=== PATIENT | male | born 1945 | race Caucasian/White ===

== ENCOUNTER 2016-09-16 12:12 | Emergency (ER) | payer OTHER, MEDICARE ==
[2016-09-16 12:41] VITALS: BP 132/77
--- NOTE | 2016-09-16 14:15 | UC ---
Christy Madrid Alfonso, scribed for Marco Antonio Casas MD on 09/16/16 at 1233 . HPI Febrile Illness - HPI Summary HPI Summary: This patient is a 71 year old male presenting to [facility] c/o febrile illness since yesterday night. Sx aggravated and alleviated by nothing. He reports productive cough, body aches, chills, nasal congestion, and sore throat. He denies vomit, wheezing, and SOB. Tobacco use disorder. Denies any contact with sick persons. Denies PMHx of diabetes mellitus and COPD. PMHx HTN. - History of Current Complaint Chief Complaint: UCRespiratory Time Seen by Provider: 09/16/16 12:21 Hx Obtained From: Patient Onset/Duration: Started Days Ago - Yesterday night, Still Present Timing: Constant Initial Severity: Moderate Current Severity: Moderate Aggravating Factors: Nothing Alleviating Factors: Nothing Associated Signs and Symptoms: Other: - Positive productive cough, fever, body aches, chills, nasal congestion, and sore throat. Negative vomit, wheezing, and SOB - Allergy/Home Medications Allergies/Adverse Reactions: Allergies Allergy/AdvReac Type Severity Reaction Status Date / Time No Known Allergies Allergy Verified 01/05/13 14:00 PMH/Surg Hx/FS Hx/Imm Hx Endocrine/Hematology History: Denies: Hx Diabetes, Hx Thyroid Disease Cardiovascular History: Reports: Hx Hypertension Respiratory History: Denies: Hx Asthma, Hx Chronic Obstructive Pulmonary Disease (COPD) GI History: Denies: Hx Ulcer - Surgical History Surgery Procedure, Year, and Place: RIGHT 2008 Infectious Disease History: No Infectious Disease History: Denies: Hx Clostridium Difficile, Hx Hepatitis, Hx Human Immunodeficiency Virus (HIV), Hx of Known/Suspected MRSA, Hx Shingles, Hx Tuberculosis, Hx Known/ Suspected VRE, Hx Known/Suspected VRSA, History Other Infectious Disease, Traveled Outside the [place] in Last 30 Days - Family History Known Family History: Positive: Other - Cancer in both parents - Social History Alcohol Use: Daily Substance Use Type: Reports: None Smoking Status (MU): Light Every Day Tobacco Smoker Review of Systems Constitutional: Fever, Chills ENT: Other - Positive nasal congestion and sore throat; negative wheezing and SOB Respiratory: Cough - Productive Gastrointestinal: Other - Negative vomiting Musculoskeletal: Other: - Positive body aches All Other Systems Reviewed And Are Negative: Yes Physical Exam Triage Information Reviewed: Yes Vital Signs: Initial Vital Signs Temp 98.1 F 09/16/16 12:13 Pulse 92 09/16/16 12:13 Resp 20 09/16/16 12:13 BP 132/77 09/16/16 12:13 Pulse Ox 98 09/16/16 12:13 Vital Signs Reviewed: Yes - Additional Comments The patient is well-nourished in no acute distress and in no acute pain. The skin is warm and dry and skin color reflects adequate perfusion. HEENT: The head is normocephalic and atraumatic. The pupils are equal and reactive. The conjunctivae are clear and without drainage. Nares are patent and without drainage. No rhinorrhea. Mouth reveals moist mucous membranes and the throat is without erythema and exudate. The external ears are intact. The ear canals are patent and without drainage. The tympanic membranes are intact. Neck is supple with full range of motion and non-tender. There are no carotid bruits. There is no neck vein distension. Respiratory: Chest is non-tender. Lungs are wheezing with rhonchi. Breath sounds are diminished in the right lung. Cardiovascular: Heart is regular rate and rhythm. There is no murmur or rub auscultated. There is no peripheral edema and pulses are symmetrical and equal. Abdomen: The abdomen is soft and non-tender. There are normal bowel sounds heard in all four quadrants and there is no organomegaly palpated. Musculoskeletal: There is 2 second capillary refill. Neurological: Patient is alert and oriented to person, place and time. Psychiatric: The patient has an appropriate affect and does not exhibit any anxiety or depression. Course/Dx - Course Assessment/Plan: A 71-year-old M presents to [facility] with a CC of febrile illness since yesterday night. He reports productive cough, body aches, chills, nasal congestion, and sore throat. He denies vomit, wheezing, and SOB. Patient will be discharged with Z-Jose M, Ventolin inhaler, prednisone, and follow up with PCP in 1 week. Pt is agreeable with this plan. - Febrile Illness Differential Diagnoses: Pneumonia, Other: - bronchitis, sinusitis - Diagnoses Clinic Provider Diagnoses: acute bronchitis Discharge - Discharge Plan Condition: Stable Disposition: HOME Prescriptions: Albuterol HFA INHALER* [Ventolin HFA Inhaler*] 2 puff INH Q6H PRN #1 mdi PRN Reason: cough Azithromycin TAB* [Zithromax TAB (Z-JOSE M) 250 mg #6 tabs] 2 tab PO .TODAY, THEN 1 DAILY #1 jose m predniSONE TAB* [Deltasone TAB*] 60 mg PO DAILY #15 tab Patient Education Materials: Acute Bronchitis (ED) Referrals: Nusrat Willis [Nurse Practitioner] - 1 Week The documentation as recorded by the Christy mcbride Alfonso accurately reflects the service I personally performed and the decisions made by , Marco Antonio Casas MD.
== END 2016-09-16 13:00 | disposition home or self-care (01) ==
LOC: UCEAST 12:12
DX: J20.9 Acute bronchitis, unspecified (principal); F17.210 Nicotine dependence, cigarettes, uncomplicated
CPT/HCPCS: 99212; G0463

== ENCOUNTER 2017-06-10 07:51 | Emergency (ER) | payer OTHER ==
[2017-06-10] MEDS ORDERED: NS 0.9% 1000 ML* 1,000 ML IV ONE (08:57)
[2017-06-10] MEDS ORDERED: Ketorolac INJ* 30 MG/ML 1 ML VIAL IV PUSH ONE (08:57)
[2017-06-10] MEDS ORDERED: Amoxicillin PO (*) 500 MG CAP PO ONE (08:58)
[2017-06-10 09:49] LABS: Hematocrit 43 % (42-52); Hemoglobin 14.9 g/dl (14.0-18.0); Mean Corpuscular HGB Conc 35 g/dl (31-36); Mean Corpuscular Hemoglobin 34 pg (27-31); Mean Corpuscular Volume 97 fL (80-94); Mean Platelet Volume 8.3 um3 (7.4-10.4); Platelet Count 128 10^3/ul (150-450); Red Blood Count 4.38 10^6/ul (4.0-5.4); Red Cell Distribution Width 12 % (10.5-15)
[2017-06-10 10:10] LABS: EGFR Non-African American 106.5 (>60)
[2017-06-10 12:49] VITALS: BP 130/72
--- NOTE | 2017-06-21 12:51 | ED ---
Jorgito Madrid Jason, scribed for Tulio Galvan MD on 06/10/17 at 1116 . Throat Pain/Nasal Congestion - HPI Summary HPI Summary: This patient is a 71 year old M presenting to [facility] with a chief complaint of dental pain since 2 days ago. The patient states 2 days ago he began experiencing dental pain with progressive swelling of his upper lip and left side of the face. 1 day ago the swelling got worse so he visited his dentist and was prescribed amoxicillin, which he has been on for 2 days as of today. He includes he took 600 mg of ibuprofen at home and has a tooth extraction planned in 5 days. The patient rates the pain 7/10 in severity. Symptoms aggravated by nothing. Symptoms alleviated by nothing. Patient denies fever. - History of Current Complaint Chief Complaint: EDRashSkinAbscess Time Seen by Provider: 06/10/17 08:39 Hx Obtained From: Patient Onset/Duration: Gradual Onset, Lasting Days - 2 days, Still Present Associated Signs And Symptoms: Positive: Negative - fever - Allergies/Home Medications Allergies/Adverse Reactions: Allergies Allergy/AdvReac Type Severity Reaction Status Date / Time No Known Allergies Allergy Verified 06/10/17 08:28 Home Medications: Home Medications Amoxicillin PO (*) [Amoxicillin 500 MG CAP*] 1 cap PO Q8H 06/10/17 [History Confirmed 06/10/17] Aspirin EC TAB* [Ecotrin EC Low Dose 81 MG*] 81 mg PO DAILY 06/10/17 [History Confirmed 06/10/17] DOXYcycline CAP(*) [DOXYcycline 100MG CAP(*)] 1 cap PO Q12H 06/10/17 [History Confirmed 06/10/17] Diflunisal TAB* [Dolobid TAB*] 500 mg PO Q8H 06/10/17 [History Confirmed ] PMH/Surg Hx/FS Hx/Imm Hx Previously Healthy: No Endocrine/Hematology History: Denies: Hx Diabetes, Hx Thyroid Disease Cardiovascular History: Reports: Hx Hypertension Respiratory History: Denies: Hx Asthma, Hx Chronic Obstructive Pulmonary Disease (COPD) GI History: Denies: Hx Ulcer - Surgical History Surgery Procedure, Year, and Place: RIGHT TK 2008 Infectious Disease History: No Infectious Disease History: Denies: Hx Clostridium Difficile, Hx Hepatitis, Hx Human Immunodeficiency Virus (HIV), Hx of Known/Suspected MRSA, Hx Shingles, Hx Tuberculosis, Hx Known/ Suspected VRE, Hx Known/Suspected VRSA, History Other Infectious Disease, Traveled Outside the [place] in Last 30 Days - Family History Known Family History: Positive: Other - Cancer in both parents - Social History Alcohol Use: Daily Alcohol Amount: "drink a night on average" Substance Use Type: Reports: None Smoking Status (MU): Light Every Day Tobacco Smoker Review of Systems Negative: Fever, Chills Positive: Dental Pain - with upper lip and left facial swelling. Negative: Sore Throat Negative: Chest Pain Negative: Shortness Of Breath, Cough Negative: Abdominal Pain, Vomiting, Nausea Negative: dysuria, hematuria Negative: Myalgia, Edema Negative: Rash Neurological: Negative - dizziness, Other All Other Systems Reviewed And Are Negative: Yes Physical Exam - Summary Physical Exam Summary: Constitutional: Well-developed, Well-nourished, Alert. (-) Distressed Skin: Warm, Dry HENT: Normocephalic; Atraumatic, No trismus, mild facial erythema on left side of the face, does not include orbit. No drainable abscess identified. The offending tooth is Left upper incisor Eyes: Conjunctiva normal Neck: Musculoskeletal ROM normal neck. (-) JVD, (-) Stridor, (-) Tracheal deviation Cardio: Rhythm regular, rate normal, Heart sounds normal; Intact distal pulses; The pedal pulses are 2+ and symmetric. Radial pulses are 2+ and symmetric. (-) Murmur Pulmonary/Chest wall: Effort normal. (-) Respiratory distress, (-) Wheezes, (-) Rales Abd: Soft, (-) Tenderness, (-) Distension, (-) Guarding, (-) Rebound Musculoskeletal: (-) Edema Lymph: (-) Cervical adenopathy Neuro: Alert, Oriented x3 Psych: Mood and affect Normal Triage Information Reviewed: Yes Vital Signs On Initial Exam: Initial Vitals Temp Pulse Resp BP Pulse Ox 97.2 F 78 17 139/82 94 06/10/17 07:56 06/10/17 07:56 06/10/17 07:56 06/10/17 07:56 06/10/17 07:56 Vital Signs Reviewed: Yes Diagnostics - Vital Signs Vital Signs Temp Pulse Resp BP Pulse Ox 06/10/17 10:30 71 143/75 92 06/10/17 10:00 75 167/92 95 06/10/17 09:30 75 93 06/10/17 09:00 73 157/82 93 06/10/17 08:30 74 153/79 92 06/10/17 08:20 67 155/78 90 06/10/17 08:18 98.3 F 06/10/17 08:17 64 90 06/10/17 07:56 97.2 F 78 17 139/82 94 - Laboratory Lab Results: Lab Results 06/10/17 06/10/17 06/10/17 Range/Units 09:35 09:35 09:35 WBC 8.0 (3.5-10.8) 10^3/ul RBC 4.38 (4.0-5.4) 10^6/ul Hgb 14.9 (14.0-18.0) g/dl Hct 43 (42-52) % MCV 97 H (80-94) fL MCH 34 H (27-31) pg MCHC 35 (31-36) g/dl RDW 12 (10.5-15) % Plt Count 128 L (150-450) 10^3/ul MPV 8.3 (7.4-10.4) um3 Sodium 137 L (139-145) mmol/L Potassium 3.4 L (3.5-5.0) mmol/L Chloride 101 (101-111) mmol/L Carbon Dioxide 28 (22-32) mmol/L Anion Gap 8 (2-11) mmol/L BUN 12 (6-24) mg/dL Creatinine 0.73 (0.67-1.17) mg/dL Est GFR ( Amer) 137.0 (>60) Est GFR (Non-Af Amer) 106.5 (>60) BUN/Creatinine Ratio 16.4 (8-20) Glucose 119 H (70-100) mg/dL Lactic Acid 0.6 (0.5-2.0) mmol/L Calcium 9.5 (8.6-10.3) mg/dL Total Bilirubin 0.60 (0.2-1.0) mg/dL AST 24 (13-39) U/L ALT 27 (7-52) U/L Alkaline Phosphatase 59 (34-104) U/L Total Protein 6.9 (6.4-8.9) g/dL Albumin 3.9 (3.2-5.2) g/dL Globulin 3.0 (2-4) g/dL Albumin/Globulin Ratio 1.3 (1-3) Result Diagrams: 06/10/17 09:35 06/10/17 09:35 Lab Statement: Any lab studies that have been ordered have been reviewed, and results considered in the medical decision making process. Re-Evaluation - Re-Evaluation First Eval Re-Evaluation Time: 12:00 Change: Improved Comment: Patient is feeling much better and wants to go home. Patient will be discharged home. The patient is agreeable with this plan EENT Course/Dx - Course Assessment/Plan: In the ED course the patient was given IV fluids and amoxicillin. Following treatment patient is feeling much better and wants to go home. The patient was recommended to use ice packs, lay on his right side, finish his amoxicillin, and take ibuprofen 800 mg every 6 hours. The patient is agreeable with this plan - Diagnoses Provider Diagnoses: Dental infection Discharge - Sign-Out/Discharge Documenting (check all that apply): Discharge - Discharge Plan Condition: Stable Disposition: HOME Patient Education Materials: Toothache (ED), Acute Dental Trauma (ED) Referrals: Leslie Melara [Primary Care Provider] - Additional Instructions: RETURN TO THE EMERGENCY DEPARTMENT FOR CHANGING OR WORSENING SYMPTOMS The documentation as recorded by the Jorgito mcbride Jason accurately reflects the service I personally performed and the decisions made by , Tulio Galvan MD.
== END 2017-06-10 12:44 | disposition home or self-care (01) ==
LOC: ED 07:51
DX: K04.7 Periapical abscess without sinus (principal); K08.89 Other specified disorders of teeth and supporting structures; F17.210 Nicotine dependence, cigarettes, uncomplicated
CPT/HCPCS: 36415; 80053; 83605; 85027; 87040; 96374; 99282; A9270-GY; J1885

== ENCOUNTER 2018-07-12 11:18 | Emergency (ER) | payer MEDICARE, OTHER ==
--- NOTE | 2018-07-12 13:20 | UC ---
Respiratory Complaint HPI - HPI Summary HPI Summary: 4 DAYS OF COUGH, CHEST CONGESTION AND RHINITIS. NO SORE THROAT, FEVER, NAUSEA/ VOMITING. COUGH IS WORSE AT NIGHT. FEELS SLIGHTLY SOB WHEN COUGHING. OTC COUGH MEDS HELP. STATES HE HAS SOME NIGHT SWEATS BUT THIS IS NOT UNUSUAL FOR HIM. HAS A LONG HISTORY OF SMOKING AND ALLERGIES. - History of Current Complaint Chief Complaint: UCGeneralIllness Stated Complaint: COUGH/CONGESTION Time Seen by Provider: 07/12/18 12:50 Hx Obtained From: Patient Onset/Duration: Gradual Onset, Lasting Days, Still Present Timing: Constant Severity Initially: Moderate Severity Currently: Moderate Pain Intensity: 3 Pain Scale Used: 0-10 Numeric Character: Cough: Nonproductive Aggravating Factors: Nothing Alleviating Factors: Nothing Associated Signs And Symptoms: Positive: URI, Nasal Congestion. Negative: Dyspnea, Fever, Wheezing - Allergies/Home Medications Allergies/Adverse Reactions: Allergies Allergy/AdvReac Type Severity Reaction Status Date / Time No Known Allergies Allergy Verified 06/10/17 08:28 PMH/Surg Hx/FS Hx/Imm Hx Cardiovascular History: Hypertension - Surgical History Surgical History: Yes Surgery Procedure, Year, and Place: RIGHT TK 2008 - Family History Known Family History: Positive: Other - Cancer in both parents - Social History Alcohol Use: Weekly Alcohol Amount: "drink a night on average" Substance Use Type: None Smoking Status (MU): Light Every Day Tobacco Smoker Review of Systems All Other Systems Reviewed And Are Negative: Yes Constitutional: Positive: Negative ENT: Positive: Nasal Discharge Respiratory: Positive: Cough Cardiovascular: Positive: Negative Gastrointestinal: Positive: Negative Physical Exam Triage Information Reviewed: Yes Appearance: Well-Appearing, No Pain Distress, Well-Nourished Vital Signs: Initial Vital Signs Temp 97.8 F 07/12/18 12:17 Pulse 62 07/12/18 12:17 Resp 18 07/12/18 12:17 BP 164/87 07/12/18 12:17 Pulse Ox 94 07/12/18 12:17 Vital Signs Reviewed: Yes Eyes: Positive: Conjunctiva Clear ENT: Positive: Hearing grossly normal, Pharynx normal, TMs normal Neck: Positive: Supple, Nontender, No Lymphadenopathy Respiratory: Positive: Lungs clear, No respiratory distress, No accessory muscle use, Decreased breath sounds - bilateral bases. Negative: Wheezing Cardiovascular Exam: Normal Abdomen Description: Positive: Soft Musculoskeletal: Positive: No Edema Neurological: Positive: Alert Psychological: Positive: Age Appropriate Behavior Skin: Negative: Rashes Respiratory Course/Dx - Course Course Of Treatment: CHEST X-RAY WITH CHANGES CONSISTENT WITH COPD. PATIENT LIKELY SYMPTOMATIC FROM AN EXACERBATION OF THIS CONDITION. WILL TREAT WITH ANTIBIOTICS, STEROIDS AND ALBUTEROL INHALER. PATIENT TO FOLLOW-UP WITH HIS PCP IF HE IS NOT IMPROVING EXPECTED WITH THIS TREATMENT. UPON REVIEWING VITAL SIGNS FROM PREVIOUS VISITS HIS O2 SAT TODAY APPEARS TO BE AT HIS BASELINE. - Differential Dx/Diagnosis Provider Diagnosis: COPD exacerbation Discharge - Sign-Out/Discharge Documenting (check all that apply): Patient Departure All imaging exams completed and their final reports reviewed: Yes - Discharge Plan Condition: Stable Disposition: HOME Prescriptions: Albuterol HFA INHALER* [Ventolin HFA Inhaler*] 2 puff INH Q4H PRN #1 mdi PRN Reason: Shortness Of Breath Azithromycin 500 mg PO DAILY #5 tab predniSONE TAB* [Deltasone TAB*] 50 mg PO DAILY #5 tab Patient Education Materials: COPD (Chronic Obstructive Pulmonary Disease) (ED) Referrals: Leslie Melara [Primary Care Provider] - If Needed Additional Instructions: CHEST X-RAY SHOWS CHANGES CONSISTENT WITH COPD. YOUR SYMPTOMS ARE CONSISTENT WITH AN EXACERBATION OF THIS CONDITION. GIVEN YOUR UNDERLYING LUNG DISORDER WILL COVER WITH ANTIBIOTICS. TAKE THE MEDICINE FOR THE FULL 5 DAYS. PREDNISONE AND ALBUTEROL TO HELP WITH AIRWAY INFLAMMATION. OTC COUGH MEDICINE YOU HAVE BEEN TAKING. REST, HYDRATE. FOLLOW-UP WITH YOUR PCP IF YOU'RE NOT IMPROVING OVER THE NEXT 1-2 WEEKS. - Billing Disposition and Condition Condition: STABLE Disposition: Home
[2018-07-12 13:58] VITALS: BP 170/90
== END 2018-07-12 13:58 | disposition home or self-care (01) ==
LOC: UCEAST 11:18
DX: J44.1 Chronic obstructive pulmonary disease with (acute) exacerbation (principal); I10 Essential (primary) hypertension; Z96.651 Presence of right artificial knee joint; F17.200 Nicotine dependence, unspecified, uncomplicated
CPT/HCPCS: 71046; 99212; G0463

== ENCOUNTER 2018-10-12 10:31 | Emergency (ER) | payer MEDICARE, OTHER ==
--- NOTE | 2018-10-12 10:40 | UC ---
Respiratory Complaint HPI - HPI Summary HPI Summary: 73 yo male presents with sinus pain/pressure/congestion, post nasal drip, and dry cough for the last 3 days. He has been taking dayquill/nyquill with little relief of his symptoms. He has started smoking again and smokes 3 cigs a day. He denies fever, chills, sore throat, SOB, wheezing, chest pain. - History of Current Complaint Stated Complaint: SINIS/COUGH SYMP Time Seen by Provider: 10/12/18 10:40 Hx Obtained From: Patient Onset/Duration: Gradual Onset Severity Initially: Mild Severity Currently: Mild Pain Intensity: 3 Pain Scale Used: 0-10 Numeric Character: Cough: Nonproductive - Allergies/Home Medications Allergies/Adverse Reactions: Allergies Allergy/AdvReac Type Severity Reaction Status Date / Time No Known Allergies Allergy Verified 10/12/18 10:46 Home Medications: Home Medications Cholecalciferol TAB* [Vitamin D TAB*] 1,000 unit PO DAILY 10/12/18 [History Confirmed 10/12/18] Diltiazem CD CAP* [Cardizem CD CAP*] 120 mg PO DAILY 10/12/18 [History Confirmed 10/12/18] Ibuprofen TAB* [Advil TAB*] 200 mg PO Q6H PRN 10/12/18 [History Confirmed ] PMH/Surg Hx/FS Hx/Imm Hx Cardiovascular History: Hypertension Respiratory History: COPD - Surgical History Surgical History: Yes Surgery Procedure, Year, and Place: RIGHT TK 2008 - Family History Known Family History: Positive: Other - Cancer in both parents - Social History Occupation: Retired Lives: With Family Alcohol Use: Weekly Alcohol Amount: "drink a night on average" Substance Use Type: None Smoking Status (MU): Light Every Day Tobacco Smoker Review of Systems All Other Systems Reviewed And Are Negative: Yes Constitutional: Positive: Negative Skin: Positive: Negative Eyes: Positive: Negative ENT: Positive: Nasal Discharge, Sinus Congestion, Sinus Pain/Tenderness Respiratory: Positive: Cough Cardiovascular: Positive: Negative Gastrointestinal: Positive: Negative Neurovascular: Positive: Negative Neurological: Positive: Negative Psychological: Positive: Negative Physical Exam - Summary Physical Exam Summary: GENERAL: NAD. WDWN. No pain distress. SKIN: No rashes, sores, lesions, or open wounds. HEENT: Head: AT/NC Eyes: EOM intact. Conjunctiva clear without inflammation or discharge. Ears: Hearing grossly normal. TMs intact, no bulging, erythema, or edema. Nose: Nasal mucosa mildly swollen and erythematous with yellow/ clear discharge. TTP frontal sinus. Positive post nasal drip Throat: Posterior oropharynx without exudates, erythema, or tonsillar enlargement. Uvula midline. NECK: Supple. Nontender. No lymphadenopathy. CHEST: CTAB. No r/r/w. No accessory muscle use. Breathing comfortably and in no distress. CV: RRR. Without m/r/g. Pulses intact. NEURO: Alert. PSYCH: Age appropriate behavior. Triage Information Reviewed: Yes Vital Signs: Vital Signs: Temp Pulse Resp BP Pulse Ox 96.8 F 67 16 154/96 97 10/12/18 10:40 10/12/18 10:40 10/12/18 10:40 10/12/18 10:40 10/12/18 10:57 Vital Signs Reviewed: Yes Respiratory Course/Dx - Course Course Of Treatment: Sinusitis. Discussed viral vs bacterial with the pt and he prefers to be on anbx at this time as he has a history of "infections going to his chest". - Differential Dx/Diagnosis Provider Diagnosis: Sinusitis Discharge - Sign-Out/Discharge Documenting (check all that apply): Patient Departure All imaging exams completed and their final reports reviewed: No Studies - Discharge Plan Condition: Stable Disposition: HOME Prescriptions: DOXYcycline CAP(*) [DOXYcycline 100MG CAP(*)] 100 mg PO BID #14 cap guaiFENesin ER TAB [Mucinex*] 600 mg PO BID #14 tab.er Patient Education Materials: Sinusitis (ED) Referrals: Leslie Melara [Primary Care Provider] - Additional Instructions: If you develop a fever, shortness of breath, chest pain, new or worsening symptoms - please call your PCP or go to the ED immediately. Your blood pressure was high at todays visit. Please see your primary provider within 4 weeks for recheck and re-evaluation. - Billing Disposition and Condition Condition: STABLE Disposition: Home - Attestation Statements Provider Attestation: I am administratively signing this document. I was available for consultation for this patient. I did not evaluate the patient, did not have a doctor/patient relationship with the patient, or participate in any medical decision making or disposition decisions unless I am specifically named in the chart as having consulted on the patient. If I have consulted on the patient, please see my own ED note on the patient encounter. Jannet Noel MD
[2018-10-12 10:46] VITALS: BP 154/96
== END 2018-10-12 11:00 | disposition home or self-care (01) ==
LOC: UCEAST 10:31
DX: J32.9 Chronic sinusitis, unspecified (principal); J44.9 Chronic obstructive pulmonary disease, unspecified; I10 Essential (primary) hypertension
CPT/HCPCS: 99212; G0463

== ENCOUNTER 2020-03-27 10:06 | Inpatient (IN) ==
[2020-03-27] MEDS ORDERED: Albuterol HFA INHALER 8 gm MDI INH ONE (10:35)
[2020-03-27] MEDS ORDERED: methylPREDNISolone 125 mg 2 ML VIAL IV ONE (10:37)
[2020-03-27 11:08] LABS: ABS Eosinophils 0.2 10^3/ul (0-0.6); ABS Lymphocytes 1.1 10^3/ul (1.0-4.8); ABS Monocytes 1.2 10^3/ul (0-0.8); ABS Neutrophils 8.6 10^3/ul (1.5-7.7); Eosinophil % 1.5 %; Hematocrit 39 % (42-52); Hemoglobin 12.9 g/dL (14.0-18.0); Lymphocyte % 10.2 %; Mean Corpuscular HGB Conc 34 g/dL (31-36); Mean Corpuscular Hemoglobin 33 pg (27-31); Mean Corpuscular Volume 99 fL (80-94); Mean Platelet Volume 8.1 fL (7.4-10.4); Platelet Count 221 10^3/uL (150-450); Red Cell Distribution Width 13 % (10-15); White Blood Count 11.2 10^3/uL (3.5-10.8)
[2020-03-27 11:33] LABS: Influenza A Molecular Negative (Negative); Influenza B Molecular Negative (Negative)
[2020-03-27 11:36] LABS: Troponin I 0.02 ng/mL (<0.03)
[2020-03-27 11:58] LABS: Albumin 3.5 g/dL (3.2-5.2); BUN/Creatinine Ratio 18.8 (8-20); Calcium 9.2 mg/dL (8.6-10.3); EGFR African American 107.2 (>60); EGFR Non-African American 88.6 (>60); Globulin 3.6 g/dL (2-4); Potassium 3.8 mmol/L (3.5-5.0); Total Bilirubin 0.5 mg/dL (0.2-1.0); Total Protein 7.1 g/dL (6.4-8.9)
[2020-03-27 12:27] LABS: C Reactive Protein 67.58 mg/L (<8.01)
[2020-03-27] MEDS ORDERED: Warfarin per PHARMACY **NOTE FOLLOW UP SCH (13:00)
[2020-03-27] MEDS ORDERED: Azithromycin 500 mg/250 ml NS 500 MG/250 ML BAG IVPB ONE ×2 (13:02→13:06)
[2020-03-27 13:51] LABS: INR 4.87 (0.82-1.09)
[2020-03-27 14:30] LABS: Urine Appearance Clear; Urine Bilirubin Negative (Negative); Urine Blood Negative (Negative); Urine Color Yellow; Urine Glucose Negative (Negative); Urine Ketones Negative (Negative); Urine Nitrite Negative (Negative); Urine Protein Negative (Negative); Urine Specific Gravity 1.017 (1.010-1.030); Urine Urobilinogen Negative (Negative)
[2020-03-27] MEDS: Albuterol HFA INHALER 8 gm MDI INH SCH ×4 (15:03→20:27)
[2020-03-27] MEDS ORDERED: Warfarin - No Order Today **NOTE FOLLOW UP ONE (17:00)
[2020-03-27] MEDS ORDERED: Albuterol HFA INHALER 8 gm MDI INH SCH (23:34)
[2020-03-28] MEDS: Albuterol HFA INHALER 8 gm MDI INH SCH ×2 (03:15→07:33)
[2020-03-28 06:03] LABS: ABS Lymphocytes 0.9 10^3/ul (1.0-4.8); ABS Monocytes 0.6 10^3/ul (0-0.8); ABS Neutrophils 8.1 10^3/ul (1.5-7.7); Hematocrit 38 % (42-52); Hemoglobin 12.9 g/dL (14.0-18.0); Lymphocyte % 8.9 %; Mean Corpuscular HGB Conc 34 g/dL (31-36); Mean Corpuscular Hemoglobin 33 pg (27-31); Mean Corpuscular Volume 98 fL (80-94); Mean Platelet Volume 8.1 fL (7.4-10.4); Platelet Count 223 10^3/uL (150-450); Red Blood Count 3.87 10^6 /uL (4.18-5.48); Red Cell Distribution Width 13 % (10-15); White Blood Count 9.6 10^3/uL (3.5-10.8)
[2020-03-28 06:05] LABS: INR 4.74 (0.82-1.09)
[2020-03-28 06:20] LABS: Albumin 3.5 g/dL (3.2-5.2); BUN/Creatinine Ratio 21.5 (8-20); EGFR African American 116.7 (>60); EGFR Non-African American 96.4 (>60); Globulin 3.6 g/dL (2-4); Total Bilirubin 0.3 mg/dL (0.2-1.0); Total Protein 7.1 g/dL (6.4-8.9)
[2020-03-28] MEDS: Cholecalciferol (VIT D3) 1,000 unit TAB PO SCH (08:29)
[2020-03-28] MEDS: Potassium Chlor 20 meq TAB.ER PO SCH (08:30)
[2020-03-28] MEDS ORDERED: Lisinopril/HCTZ 20/12.5 TB(NF) PO SCH (09:00)
[2020-03-28] MEDS ORDERED: Albuterol HFA INHALER 8 gm MDI INH PRN (09:24)
[2020-03-28] MEDS: SPIRIVA Respimat (tiotropium) 2.5 mcg/inh Inhaler INH SCH (10:31)
[2020-03-28] MEDS: Fluticasone NASAL SPRAY 50MCG 16 gm SPRAY BTL INTRANASAL SCH (11:05)
[2020-03-28] MEDS ORDERED: Warfarin - No Order Today **NOTE FOLLOW UP ONE (12:00)
[2020-03-28] MEDS: Warfarin DAILY REMINDER **NOTE FOLLOW UP SCH (16:25)
[2020-03-29 07:01] LABS: INR 4.04 (0.82-1.09)
[2020-03-29] MEDS: SPIRIVA Respimat (tiotropium) 2.5 mcg/inh Inhaler INH SCH (08:27)
[2020-03-29] MEDS: Cholecalciferol (VIT D3) 1,000 unit TAB PO SCH (10:11)
[2020-03-29] MEDS: Potassium Chlor 20 meq TAB.ER PO SCH (10:11)
[2020-03-29] MEDS: Fluticasone NASAL SPRAY 50MCG 16 gm SPRAY BTL INTRANASAL SCH (10:29)
[2020-03-29] MEDS: Warfarin DAILY REMINDER **NOTE FOLLOW UP SCH (16:27)
[2020-03-29] MEDS ORDERED: Warfarin - No Order Today **NOTE FOLLOW UP ONE (17:00)
[2020-03-29] MEDS: Mometasone/Formoter 100/5 MDI INH SCH (20:09)
[2020-03-30 06:12] LABS: INR 2.73 (0.82-1.09)
[2020-03-30] MEDS: SPIRIVA Respimat (tiotropium) 2.5 mcg/inh Inhaler INH SCH (08:05)
[2020-03-30] MEDS: Mometasone/Formoter 100/5 MDI INH SCH ×2 (08:05→20:42)
[2020-03-30] MEDS: Fluticasone NASAL SPRAY 50MCG 16 gm SPRAY BTL INTRANASAL SCH (08:38)
[2020-03-30] MEDS: Potassium Chlor 20 meq TAB.ER PO SCH (09:59)
[2020-03-30] MEDS: Cholecalciferol (VIT D3) 1,000 unit TAB PO SCH (09:59)
[2020-03-30] MEDS: Warfarin DAILY REMINDER **NOTE FOLLOW UP SCH (16:54)
[2020-03-31 06:07] LABS: INR 2.25 (0.82-1.09)
[2020-03-31] MEDS: Potassium Chlor 20 meq TAB.ER PO SCH (08:09)
[2020-03-31] MEDS: Cholecalciferol (VIT D3) 1,000 unit TAB PO SCH (08:11)
[2020-03-31] MEDS: Mometasone/Formoter 100/5 MDI INH SCH (08:15)
[2020-03-31] MEDS: SPIRIVA Respimat (tiotropium) 2.5 mcg/inh Inhaler INH SCH (08:16)
[2020-03-31] MEDS: Fluticasone NASAL SPRAY 50MCG 16 gm SPRAY BTL INTRANASAL SCH (08:18)
[2020-03-31 11:34] VITALS: BP 135/63
== END 2020-03-31 14:40 | disposition home or self-care (01) | DRG 189 ==
LOC: ED 10:06 → MED 10:06 → OBSVTOIN 12:58 → MED 13:56 → SSU 03-30 09:08
PROVIDERS: ADMIT Student in an Organized Health Care Education/Training Program; ATTEND Hospitalist

== ENCOUNTER 2020-04-08 11:02 | Inpatient (IN) ==
[2020-04-08 12:10] LABS: ABS Eosinophils 0.2 10^3/ul (0-0.6); ABS Lymphocytes 1.3 10^3/ul (1.0-4.8); ABS Monocytes 0.9 10^3/ul (0-0.8); ABS Neutrophils 6.2 10^3/ul (1.5-7.7); Eosinophil % 2.5 %; Hematocrit 39 % (42-52); Hemoglobin 13.2 g/dL (14.0-18.0); Lymphocyte % 14.6 %; Mean Corpuscular HGB Conc 34 g/dL (31-36); Mean Corpuscular Hemoglobin 33 pg (27-31); Mean Corpuscular Volume 98 fL (80-94); Mean Platelet Volume 7.9 fL (7.4-10.4); Nucleated Red Blood Cells % 0.1; Platelet Count 165 10^3/uL (150-450); Red Blood Count 3.97 10^6 /uL (4.18-5.48); Red Cell Distribution Width 14 % (10-15); White Blood Count 8.6 10^3/uL (3.5-10.8)
[2020-04-08 12:27] LABS: Albumin 3.6 g/dL (3.2-5.2); Albumin/Globulin Ratio 1.1 (1-3); BUN/Creatinine Ratio 17.9 (8-20); C Reactive Protein 57.05 mg/L (<8.01); Calcium 9.8 mg/dL (8.6-10.3); EGFR African American 108.7 (>60); EGFR Non-African American 89.8 (>60); Globulin 3.3 g/dL (2-4); Potassium 4.2 mmol/L (3.5-5.0); Total Bilirubin 0.6 mg/dL (0.2-1.0); Total Protein 6.9 g/dL (6.4-8.9)
[2020-04-08 12:28] LABS: Troponin I 0.01 ng/mL (<0.03)
[2020-04-08 12:38] LABS: INR 1.74 (0.82-1.09)
[2020-04-08] MEDS ORDERED: Iohexol 350 (CONTRAST) 500 ML MDV IV ONE (14:12)
[2020-04-08] MEDS ORDERED: Enoxaparin 40 MG/0.4 ML SYR SUBCUT ONE (16:55)
[2020-04-08] MEDS ORDERED: Albuterol/Ipratropium NEB.SOL (2.5/0.5 MG) 3 ML NEB.SOLN INH PRN (16:56)
[2020-04-08] MEDS ORDERED: Enoxaparin 100 MG/ML SYR SUBCUT ONE (18:44)
[2020-04-08] MEDS: Mometasone/Formoter 100/5 MDI INH SCH (20:52)
[2020-04-09 06:22] LABS: INR 1.98 (0.82-1.09)
[2020-04-09] MEDS: SPIRIVA Respimat (tiotropium) 2.5 mcg/inh Inhaler INH SCH (08:25)
[2020-04-09] MEDS: Mometasone/Formoter 100/5 MDI INH SCH ×2 (09:13→19:28)
[2020-04-09] MEDS: Cholecalciferol (VIT D3) 1,000 unit TAB PO SCH (10:46)
[2020-04-09] MEDS: Potassium Chlor 20 meq TAB.ER PO SCH (10:46)
[2020-04-09] MEDS: Fluticasone NASAL SPRAY 50MCG 16 gm SPRAY BTL INTRANASAL SCH (10:52)
[2020-04-10] MEDS: Fluticasone NASAL SPRAY 50MCG 16 gm SPRAY BTL INTRANASAL SCH (09:15)
[2020-04-10] MEDS: Cholecalciferol (VIT D3) 1,000 unit TAB PO SCH (09:16)
[2020-04-10] MEDS: Potassium Chlor 20 meq TAB.ER PO SCH (09:16)
[2020-04-10] MEDS: SPIRIVA Respimat (tiotropium) 2.5 mcg/inh Inhaler INH SCH (09:17)
[2020-04-10] MEDS: Mometasone/Formoter 100/5 MDI INH SCH (09:17)
[2020-04-10 09:22] VITALS: BP 152/72
[2020-04-10 09:22] LABS: ABS Basophils 0.1 10^3/ul (0-0.2); ABS Eosinophils 0.1 10^3/ul (0-0.6); ABS Lymphocytes 1.7 10^3/ul (1.0-4.8); ABS Monocytes 0.9 10^3/ul (0-0.8); ABS Neutrophils 7.5 10^3/ul (1.5-7.7); Eosinophil % 1.3 %; Hematocrit 39 % (42-52); Hemoglobin 13.3 g/dL (14.0-18.0); Lymphocyte % 16.1 %; Mean Corpuscular HGB Conc 34 g/dL (31-36); Mean Corpuscular Hemoglobin 34 pg (27-31); Mean Corpuscular Volume 98 fL (80-94); Mean Platelet Volume 8.4 fL (7.4-10.4); Nucleated Red Blood Cells % 0.1; Platelet Count 170 10^3/uL (150-450); Red Blood Count 3.97 10^6 /uL (4.18-5.48); Red Cell Distribution Width 13 % (10-15); White Blood Count 10.3 10^3/uL (3.5-10.8)
[2020-04-10 09:30] LABS: INR 2.04 (0.82-1.09)
[2020-04-10 09:50] LABS: Albumin 3.7 g/dL (3.2-5.2); Albumin/Globulin Ratio 1.1 (1-3); BUN/Creatinine Ratio 20.3 (8-20); Calcium 9.9 mg/dL (8.6-10.3); EGFR African American 116.7 (>60); EGFR Non-African American 96.4 (>60); Globulin 3.4 g/dL (2-4); Magnesium 1.9 mg/dL (1.9-2.7); Potassium 3.8 mmol/L (3.5-5.0); Total Bilirubin 0.4 mg/dL (0.2-1.0); Total Protein 7.1 g/dL (6.4-8.9)
== END 2020-04-10 16:10 | disposition home or self-care (01) | DRG 190 ==
LOC: ED 11:02 → MED 11:02
PROVIDERS: ADMIT Internal Medicine; ATTEND Internal Medicine

== ENCOUNTER 2022-08-06 06:37 | Observation (INO) ==
[~2022-08-06 06:37] MED LIST: Buffered Lidocaine 1% SYRIN 1 ml INTRADERM ONE; Famotidine IV 10 MG/ML 2 ml VIAL (20 mg) IV ONE; Lactated Ringers 1000 ml BAG 1,000 ML IV SCH; Levalbuterol 0.63MG/3ML NEB UNIT OF USE INH ONE
[2022-08-06] MEDS ORDERED: ceFAZolin *3* GM in NS PREMIX 3 GM/100 ML BAG IV ONE (06:59)
[2022-08-06] MEDS ORDERED: Midazolam 5 mg/5 ml VIAL 1 mg/ml 5 ml VIAL (5 mg) ONE (07:25)
[2022-08-06] MEDS ORDERED: fentaNYL 100 mcg/2 ml 50 MCG/ML VIAL ONE ×3 (07:25→11:17)
[2022-08-06] MEDS ORDERED: ROPIVACAINE 5 MG/ML 30 ML BTL (0.5%) ONE ×2 (07:25→10:07)
[2022-08-06 07:26] LABS: Rapid COVID-19 Molecular Undetected (Undetected)
[2022-08-06] MEDS ORDERED: Tranexamic Acid 1,000 MG in NS 0.9% 50 ML IV ONE (07:30)
[2022-08-06] MEDS ORDERED: Ondansetron 4 mg VIAL 2 MG/ML 2 ml VIAL ONE (07:56)
[2022-08-06] MEDS ORDERED: Propofol 10 MG/ML 20 ML BTL ONE ×2 (07:56→07:59)
[2022-08-06] MEDS ORDERED: Dexamethasone IV 4 MG/ML VIAL 1 ml VIAL ONE (07:56)
[2022-08-06] MEDS ORDERED: Levalbuterol 0.63MG/3ML NEB UNIT OF USE INH ONE (07:57)
[2022-08-06] MEDS ORDERED: Famotidine IV 10 MG/ML 2 ml VIAL (20 mg) ONE (07:57)
[2022-08-06] MEDS ORDERED: Phenylephrine IV 10 MG/ML 1 ml VIAL ONE (07:58)
[2022-08-06] MEDS ORDERED: Rocuronium 50 mg VIAL 10 mg/ml 5 ml VIAL (50 mg) ONE (07:58)
[2022-08-06] MEDS ORDERED: Lidocaine 2% PF 5 ML VIAL ONE (07:58)
[2022-08-06] MEDS ORDERED: Phenylephrine 40 mcg/mL 10mL (400mcg) SYRINGE ONE (07:58)
[2022-08-06] MEDS ORDERED: Ketamine HCL 50 mg/ml 10 ml VIAL (500 MG) ONE (07:59)
[2022-08-06] MEDS ORDERED: Midazolam 2 mg/2 ml VIAL 1 mg/ml 2 ml VIAL (2 mg) ONE (08:00)
[2022-08-06] MEDS ORDERED: HYDROmorphone 1 MG/1 ML SYRINGE IV PRN (09:19)
[2022-08-06] MEDS ORDERED: Levalbuterol 0.63MG/3ML NEB UNIT OF USE INH PRN (09:19)
[2022-08-06] MEDS ORDERED: fentaNYL 100 mcg/2 ml 50 MCG/ML VIAL IV PRN (09:19)
[2022-08-06] MEDS ORDERED: Naloxone 0.4 mg VIAL 0.4 mg/ml 1 ml VIAL IV PRN (09:19)
[2022-08-06] MEDS ORDERED: Ondansetron ODT 4 mg TAB 4 MG TAB PO PRN (11:40)
[2022-08-06] MEDS ORDERED: Lactulose 30 ml UDC PO PRN (11:40)
[2022-08-06] MEDS ORDERED: Magnesium Hydroxide LIQ 30 ML UDC PO PRN (11:40)
[2022-08-06] MEDS ORDERED: Ondansetron 4 mg VIAL 2 MG/ML 2 ml VIAL IV PRN (11:40)
[2022-08-06] MEDS ORDERED: Morphine 2 MG/ML SYRINGE IV PRN (11:40)
[2022-08-06] MEDS: Lactated Ringers 1000 ml BAG 1,000 ML IV SCH (14:01)
[2022-08-06] MEDS: ceFAZolin 1 GM ADVAN 1 GM in NS 0.9% 50 ML 50 ML IVPB SCH (18:08)
[2022-08-06] MEDS: Magnesium Hydroxide LIQ 30 ML UDC PO SCH (21:42)
[2022-08-07] MEDS: Lactated Ringers 1000 ml BAG 1,000 ML IV SCH (00:21)
[2022-08-07] MEDS: ceFAZolin 1 GM ADVAN 1 GM in NS 0.9% 50 ML 50 ML IVPB SCH ×2 (00:21→07:40)
[2022-08-07 06:24] LABS: Hematocrit 33.5 % (38-53); Hemoglobin 11.6 g/dL (13.2-16.3); Mean Platelet Volume 8.6 fL (7.5-11.2); Platelet Count 136 10^3/uL (150-450)
[2022-08-07 06:47] LABS: Calcium 8.6 mg/dL (8.6-10.3); Creatinine, Serum 0.8 mg/dL (0.67-1.17); Potassium 4.3 mmol/L (3.5-5.0); eGFR CKD-EPI 92.9 (>60)
[2022-08-07] MEDS: Magnesium Hydroxide LIQ 30 ML UDC PO SCH (07:42)
[2022-08-07] MEDS ORDERED: Vitamin THERAPEUTIC TAB PO SCH (09:00)
[2022-08-07 10:26] VITALS: BP 168/74
== END 2022-08-07 11:40 | disposition home or self-care (01) ==
LOC: AA 06:37 → INTOOBSV 06:37 → SSU 13:13
PROVIDERS: ADMIT Orthopaedic Surgery Adult Reconstructive Orthopaedic Surgery; ATTEND Orthopaedic Surgery Adult Reconstructive Orthopaedic Surgery